=== PATIENT | female | born 1985 | race African-American/Black ===

== ENCOUNTER 2017-09-22 09:01 | Emergency (ER) | payer MEDICAID, OTHER ==
[~2017-09-22] VITALS: Ht 160 cm; Wt 83.0 kg
[2017-09-22 09:11] VITALS: BP 117/72
[2017-09-22] MEDS ORDERED: FLUORESCEIN SODIUM 1MG/STRIP OP ONE (10:00)
[2017-09-22] MEDS ORDERED: TETRACAINE 0.5% OPHTH DROPS 4ML OP ONE (10:00)
== END 2017-09-22 12:01 | disposition home or self-care (01) ==
LOC: ER 09:14
DX: H10.13 Acute atopic conjunctivitis, bilateral (principal); F17.200 Nicotine dependence, unspecified, uncomplicated
CPT/HCPCS: 99283; 99406